=== PATIENT | male | born 1960 | race Caucasian/White ===

== ENCOUNTER 2025-04-21 08:08 | Emergency (ER) | payer MEDICARE, OTHER ==
[2025-04-21] MEDS ORDERED: dilTIAZem 125 MG/25 ML SDV ONE (08:42)
[2025-04-21 08:48] LABS: #Basophils 0.08 10x3/uL (0.0-0.2); #Eosinophils 1.27 10x3/uL (0.0-0.5); #Monocytes 1.09 10x3/uL (0.0-1.1); #Neutrophils 6.36 10x3/uL (1.5-8.4); %Basophils 0.7 % (0.0-2.0); %Lymphocytes 23.4 % (18.0-47.0); %Monocytes 9.5 % (0.0-10.0); %Neutrophils 55.1 % (40.0-75.0); Hematocrit 44.7 % (38.8-50.0); Hemoglobin 15.1 g/dL (13.5-17.5); Mean Corpuscular HGB CONC 33.8 g/dL (32.0-36.0); Mean Corpuscular Hemoglobin 31.1 pg (27.0-33.0); Mean Corpuscular Volume 92.2 fL (81.2-95.1); Mean Platelet Volume 10.9 fL (7.4-10.4); Platelet Count 255 10x3/uL (150-450); Red Blood Cell (RBC) Count 4.85 10x6/uL (4.32-5.72); White Blood Cell (WBC) Count 11.52 10x3/uL (3.5-10.5)
[2025-04-21 09:12] LABS: ALT (SGPT) 31 U/L (Less than 45); AST (SGOT) 27 U/L (11-34); Albumin 3.8 g/dL (3.1-4.5); Alkaline Phosphatase 88 U/L (40-110); Anion Gap 19 mmol/L (10-20); BUN (Urea Nitrogen) 11 mg/dL (8.4-25.7); Bilirubin, Total 0.3 mg/dL (0.3-1.2); Calc. Creatinine Clearance 0 mL/min (70-130); Calcium 9.3 mg/dL (7.8-10.44); Carbon Dioxide 19 mmol/L (23-31); Chloride 107 mmol/L (98-107); Estimated GFR 64; Globulin 4.5 g/dL (2.4-3.5); Glucose 115 mg/dL (80-115); Protein, Total 8.3 g/dL (5.8-8.1); Sodium 141 mmol/L (136-145)
[2025-04-21 09:13] LABS: Troponin I 0.029 ng/mL (< 0.028)
== END 2025-04-21 11:48 | disposition home or self-care (01) ==
LOC: CSHERS 08:08
DX: I48.91 Unspecified atrial fibrillation (principal); I10 Essential (primary) hypertension; E11.39 Type 2 diabetes mellitus with other diabetic ophthalmic complication; H42 Glaucoma in diseases classified elsewhere; Z79.01 Long term (current) use of anticoagulants; Z79.4 Long term (current) use of insulin; Z79.899 Other long term (current) drug therapy
CPT/HCPCS: 71045; 80053; 83880; 84484; 85025; 93005; 93010; 96374